=== PATIENT | male | born 1995 | race Caucasian/White ===

== ENCOUNTER 2017-01-25 00:55 | Emergency (ER) | payer OTHER ==
[2017-01-25] MEDS ORDERED: LORAZEPAM 1 MG PREPACK#4 BTL TAKEHOME ONE (01:31)
--- NOTE | 2017-01-25 01:31 | EDPHY ---
H & P Stated Complaint: anxiety, left arm numbness and tingling Time Seen by Provider: 01/25/17 01:25 HPI/ROS: CHIEF COMPLAINT: Anxiety attack HISTORY OF PRESENT ILLNESS: The patient is a 21-year-old man who comes to the emergency department complaining of anxiety and left arm paresthesias that woke him from sleep about an hour ago. He thinks that he may have been sleeping on his arm. His symptoms have since resolved. He has a history of anxiety states that he has not had an episode for about a year since he stop drinking alcohol. Denies any other drug use recently. He also complains that he gets dark looking seeds in his stool occasionally. He does not think that it is blood. He denies any GERD type symptoms. He states that otherwise he feels healthy and is currently asymptomatic. No abdominal pain. No vomiting. No fevers. REVIEW OF SYSTEMS: Constitutional: denies: chills, fever, recent illness, recent injury EENTM: denies: blurred vision, double vision, nose congestion Respiratory: denies: cough, shortness of breath Cardiac: denies: chest pain, irregular heart rate, lightheadedness, palpitations Gastrointestinal/Abdominal: See HPI, denies: abdominal pain, diarrhea, nausea, vomiting, blood streaked stools Genitourinary: denies: dysuria, frequency, hematuria, pain Musculoskeletal: denies: joint pain, muscle pain Skin: denies: lesions, rash, jaundice, bruising Neurological: denies: headache, numbness, paresthesia, tingling, dizziness, weakness Hematologic/Lymphatic: denies: blood clots, easy bleeding, easy bruising Immunologic/allergic: denies: HIV/AIDS, transplant EXAM: GENERAL: Well-appearing, well-nourished and in no acute distress. HEAD: Atraumatic, normocephalic. EYES: Pupils equal round and reactive to light, extraocular movements intact, sclera anicteric, conjunctiva are normal. ENT: TMs normal, nares patent, oropharynx clear without exudates. Moist mucous membranes. NECK: Normal range of motion, supple without lymphadenopathy or JVD. LUNGS: Breath sounds clear to auscultation bilaterally and equal. No wheezes rales or rhonchi. HEART: Regular rate and rhythm without murmurs, rubs or gallops. ABDOMEN: Soft, nontender, normoactive bowel sounds. No guarding, no rebound. No masses appreciated. Patient refused rectal exam BACK: No CVA tenderness, no spinal tenderness, step-offs or deformities EXTREMITIES: Normal range of motion, no pitting or edema. No clubbing or cyanosis. NEUROLOGICAL: Cranial nerves II through XII grossly intact. Normal speech, normal gait. 5/5 strength, normal movement in all extremities, normal sensation PSYCH: Normal mood, normal affect. SKIN: Warm, dry, normal turgor, no visible rashes or lesions. Source: Patient Exam Limitations: No limitations - Personal History Current Tetanus/Diphtheria Vaccine: Unsure Current Tetanus Diphtheria and Acellular Pertussis (TDAP): Unsure - Medical/Surgical History Hx Asthma: No Hx Chronic Respiratory Disease: No Hx Diabetes: No Hx Cardiac Disease: No Hx Renal Disease: No Hx Cirrhosis: No Hx Alcoholism: No Hx HIV/AIDS: No Hx Splenectomy or Spleen Trauma: No Other PMH: [place], panic attacks, anxiety, rotator cuff repair - Family History Significant Family History: No pertinent family hx - Social History Smoking Status: Current some day smoker Alcohol Use: Sober Drug Use: None Constitutional: Initial Vital Signs Temperature (C) 36.5 C 01/25/17 00:57 Heart Rate 100 01/25/17 00:57 Respiratory Rate 18 01/25/17 00:57 Blood Pressure 135/82 H 01/25/17 00:57 O2 Sat (%) 97 01/25/17 00:57 O2 Delivery Mode Room Air Allergies/Adverse Reactions: No Known Allergies Allergy (Unverified 06/25/15 17:47) Home Medications: Medication Instructions Recorded NK [No Known Home Meds] 06/25/15 Medical Decision Making ED Course/Re-evaluation: We discussed options for panic attacks. He would like to have a Ativan to take if needed. We discussed avoidance of possible. I offered to perform a rectal exam to evaluate the seeds in his stool. He declines and states that he has an appointment with a hydraulic lift driver. At this point he is feeling reassured and eager to go home. We discussed indications for returning. Differential Diagnosis: Partial list of the Differential diagnosis considered include but were not limited to; anxiety, peptic ulcer disease and although unlikely based on the history and physical exam, I also considered acute coronary disease, GI bleed, neuropathy. I discussed these differential diagnoses and the plan with the patient as well as the usual and expected course. The patient understands that the diagnosis is provisional and that in medicine we are not always correct and that further workup is often warranted. Usual and customary warnings were given. All of the patient's questions were answered. The patient was instructed to return to the emergency department should the symptoms at all worsen or return, otherwise to followup with the physician as we discussed. - Data Points Medications Given: Discontinued Medications Lorazepam (Ativan 1 Mg Prepack#4) [facility] Stop: 01/25/17 01:32 Last Admin: 01/25/17 01:42 Dose: 1 btl Departure - Departure Disposition: Home, Routine, Self-Care Clinical Impression: Anxiety attack Condition: Fair Instructions: Lorazepam (By mouth), Generalized Anxiety Disorder (ED) Referrals: CLAYTON DUDLEY [Other] - As per Instructions
[2017-01-25 01:43] VITALS: BP 127/73; PULSE 89; RESP 20; TEMP 98.1; O2SAT 96
== END 2017-01-25 01:43 | disposition home or self-care (01) ==
DX: F41.9 Anxiety disorder, unspecified (principal); F17.200 Nicotine dependence, unspecified, uncomplicated

== ENCOUNTER 2017-02-05 04:34 | Emergency (ER) | payer OTHER ==
[2017-02-05 04:40] VITALS: RESP 16; TEMP 97.5
--- NOTE | 2017-02-05 05:18 | CPEKG ---
Heart Rate: 74 RR Interval: 811 P-R Interval: 188 QRSD Interval: 78 QT Interval: 360 QTC Interval: 400 P [place]: 67 QRS [place]: 90 T Wave [place]: 51 EKG Severity - OTHERWISE NORMAL ECG - EKG Impression: SINUS RHYTHM EKG Impression: BORDERLINE RIGHT AXIS DEVIATION Electronically Signed By: Angelica Pisano 05-Feb-2017 07:08:34
[2017-02-05 05:59] LABS: ANION GAP 11 mEq/L (8-16); CALCIUM 9.8 mg/dL (8.5-10.4); CARBON DIOXIDE 27 mEq/l (22-31); CHLORIDE 101 mEq/L (97-110); CREATININE 0.8 mg/dL (0.7-1.3); GLOMERULAR FILTRATION RATE > 60; GLUCOSE 87 mg/dL (70-100); POTASSIUM 4.2 mEq/L (3.5-5.2); SODIUM 139 mEq/L (134-144)
--- NOTE | 2017-02-05 06:40 | EDPHY ---
H & P Stated Complaint: constant hunger interfering with sleep x1 mo Time Seen by Provider: 02/05/17 04:46 HPI/ROS: HPI The patient presents with 1 month of insomnia, feeling out of it, feeling hungry all of the time. He says he just does not feel himself and has less energy than usual. He was in the emergency room within the last month for an anxiety attack and also has seen his primary care doctor who ran some basic testing though he is not sure exactly what. He also saw brand specialist with a fairly normal workup. He denies any weight gain, constipation, diarrhea. He is not taking any new medications.. REVIEW OF SYSTEMS Constitutional: No fever, no chills. Eyes: No discharge. ENT: No sore throat. Cardiovascular: No chest pain, no palpitations. Respiratory: No cough, no shortness of breath. Gastrointestinal: No abdominal pain, no vomiting. Genitourinary: No hematuria. Musculoskeletal: No back pain. Skin: No rashes. Neurological: No headache. PMHx: History of anxiety Soc Hx: College student, occasional tobacco use, no alcohol use, uses GHB and ecstasy occasionally FHx: Noncontributory PHYSICAL General Appearance: Alert, no distress Eyes: Pupils equal and round no pallor or injection ENT, Mouth: Mucous membranes moist Respiratory: There are no retractions, lungs are clear to auscultation Cardiovascular: Regular rate and rhythm Gastrointestinal: Abdomen is soft and non-tender, no masses, bowel sounds normal Neurological: A&O, moves all extremities Skin: Warm and dry, no rashes Musculoskeletal: Neck is supple non tender Extremities: symmetrical, full range of motion Psychiatric: Patient is oriented X 3, there is no agitation Source: Patient Exam Limitations: No limitations - Personal History Current Tetanus/Diphtheria Vaccine: Yes Current Tetanus Diphtheria and Acellular Pertussis (TDAP): Yes - Medical/Surgical History Hx Asthma: No Hx Chronic Respiratory Disease: No Hx Diabetes: No Hx Cardiac Disease: No Hx Renal Disease: No Hx Cirrhosis: No Hx Alcoholism: No Hx HIV/AIDS: No Hx Splenectomy or Spleen Trauma: No Other PMH: [place], panic attacks, anxiety, rotator cuff repair - Social History Smoking Status: Current some day smoker Constitutional: Initial Vital Signs Temperature (C) 36.4 C 02/05/17 04:36 Heart Rate 89 02/05/17 04:36 Respiratory Rate 16 02/05/17 04:36 Blood Pressure 134/81 H 02/05/17 04:36 O2 Sat (%) 97 02/05/17 04:36 O2 Delivery Mode Room Air Allergies/Adverse Reactions: No Known Allergies Allergy (Verified 02/05/17 04:40) Home Medications: Medication Instructions Recorded NK [No Known Home Meds] 06/25/15 Medical Decision Making Differential Diagnosis: This is a 21-year-old healthy male who presents with 1 month of insomnia, hunger , not feeling himself. Differential diagnosis includes thyroid disorder, new onset diabetes, anxiety, arrhythmia. In the emergency room TSH was checked and was normal, CMP was also normal, EKG was unremarkable. The cause of his symptoms is not entirely clear, could be related to anxiety. I have explained this to him. I have referred him to a local primary care doctor as [place] care [place]. He does have GI follow-up as well. - Data Points Laboratory Results: Laboratory Results 02/05/17 05:12 02/05/17 05:12 Sodium 139 mEq/L mEq/L (134-144) Potassium 4.2 mEq/L mEq/L (3.5-5.2) Chloride 101 mEq/L mEq/L (97-110) Carbon Dioxide 27 mEq/l mEq/l (22-31) Anion Gap 11 mEq/L mEq/L (8-16) BUN 17 mg/dL mg/dL (7-23) Creatinine 0.8 mg/dL mg/dL (0.7-1.3) Estimated GFR > 60 Glucose 87 mg/dL mg/dL (70-100) Calcium 9.8 mg/dL mg/dL (8.5-10.4) TSH 3.670 uIU/mL uIU/mL (0.465-4.680) Departure - Departure Disposition: Home, Routine, Self-Care Clinical Impression: Excessive hunger Insomnia Qualifiers: Insomnia type: unspecified Qualified Code(s): G47.00 - Insomnia, unspecified Condition: Good Instructions: Insomnia (ED) Additional Instructions: Please return to the emergency room if your worse in any way, otherwise you should follow up with your regular doctor. You can call Dr. Carlos Saeed to arrange for primary care at [phone].
[2017-02-05 06:50] VITALS: BP 102/71; PULSE 88; O2SAT 96
== END 2017-02-05 06:52 | disposition home or self-care (01) ==
DX: R63.2 Polyphagia (principal); F17.200 Nicotine dependence, unspecified, uncomplicated; G47.00 Insomnia, unspecified